=== PATIENT | female | born 2000 | race Caucasian/White ===

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

== ENCOUNTER → 2024-05-16 | Outpatient (CLI) | payer OTHER, SELFPAY ==
[2024-05-16 16:32] LABS: Absolute Lymphocyte Count 2.92 X10^3/uL (0.83-4.51); Absolute Neutrophil Count 5.9 X10^3/uL (2.0-7.7); Basophil# 0.08 X10^3/uL; Basophil% 0.8 % (0-1); Eosinophil# 0.36 X10^3/uL; Eosinophils% 3.5 % (0-5); Hemoglobin 15.1 g/dL (12.0-15.0); Lymphocyte # 2.92 X10^3/ul (0.83-4.51); Lymphocyte % 28.3 % (19-41); Mean Corp Hgb Conc 33.6 g/dL (32-36); Mean Corpuscular Hgb 29.4 pg (27.0-32.0); Mean Corpuscular Volume 87.5 fL (81-99); Mean Platelet Vol. 9.6 fl (6.2-12.0); Monocyte# 1.01 X10^3/uL; Monocyte% 9.8 % (0-10); NRBC Flagged by Analyzer 0 % (0-5); Neutrophil # 5.89 X10^3/uL (2.7-7.7); Neutrophil % 57.2 % (47-70); Platelet Count 387 K/mm3 (150-450); RBC Distribution Width SD 41.5 fl (35.1-43.9); Red Blood Count 5.14 M/mm3 (4.2-5.4); White Blood Count 10.3 K/mm3 (4.4-11.0)
[2024-05-16 16:48] LABS: ALB/GLOB Ratio 1.3 RATIO (0.9-2.4); AST(SGOT) 22 U/L (<=31); Alanine Aminotransfer ALT/SGPT 9 U/L (<=34); Albumin, Serum 4.7 g/dL (3.5-5.0); Alkaline Phosphatase 85 U/L (35-104); Anion Gap 13 (5-15); BUN 5 mg/dL (4-19); BUN/Creat Ratio 8.3 RATIO (10-20); Calcium,Total 10.1 mg/dL (7.6-11.0); Carbon Dioxide 23.8 mmol/L (21.0-32.0); Chloride 100 mmol/L (98-108); Cholesterol 166 mg/dL (<=190); Creatinine, Serum 0.61 mg/dL (0.70-1.20); EST Glomerular Filtration Rate 130 (>60); Globulin 3.6 g/dL (2.2-4.2); Glucose 86 mg/dL (70-99); High Density Lipoprotein 52 mg/dL; Low Density Lipoprotein Calc. 104 mg/dL; Potassium 4.2 mmol/L (3.3-5.1); Protein, Total 8.3 g/dL (5.9-8.4); Sodium Level 137 mmol/L (133-145); Total Bilirubin 0.18 mg/dL (0.00-1.30); Triglycerides 52 mg/dL; Very Low Density Lipoprotein 10 mg/dL (5-40)
== END | disposition home or self-care (01) ==
LOC: BIMLAB 15:16
PROVIDERS: PCP Internal Medicine; Visit Provider Internal Medicine
DX: F41.9 Anxiety disorder, unspecified (principal); F32.A Depression, unspecified; Z13.6 Encounter for screening for cardiovascular disorders
CPT/HCPCS: 36415; 80053; 80061; 85025

== ENCOUNTER → 2024-06-27 | Outpatient (CLI) | payer OTHER, SELFPAY ==
--- NOTE | 2024-06-27 12:41 | ECHOD_ITS ---
Reason For Study Reason For Study: MURMUR Procedure This was a 2D Doppler, Color Flow transthoracic echocardiogram. Exam performed in department. Left Ventricle Normal LV size. Left ventricular systolic function is normal. The left ventricular ejection fraction is 60 %. No regional wall motion abnormalities noted. Right Ventricle Normal RV size. Normal systolic function. Atria Normal left atrium. Normal right atrium. Mitral Valve Normal mitral valve. Tricuspid Valve Normal tricuspid valve. Aortic Valve Trisinus/trileaflet aortic valve. Pulmonic Valve Normal pulmonic valve. Great Vessels Normal aortic root. The pulmonary artery is normal size. Inferior vena cava collapse with respiration. Pericardium/Pleural No pericardial effusion. MMode/2D Measurements & Calculations LVIDd: 4.7 cm IVSd: 0.69 cm Ao root diam: 2.5 cm LVIDs: 3.5 cm LVPWd: 0.75 cm RVDd: 2.7 cm FS: 25.2 % LAV(MOD-bp): 24.8 ml LVAd ap4: 25.9 cm2 SV(MOD-sp4): 38.3 ml LAV(MOD-bp) Indexed: 14.6 ml/m2 LVLd ap4: 8.4 cm SI(MOD-sp4): 22.5 ml/m2 LAV(MOD-sp2): 24.6 ml EDV(MOD-sp4): 67.4 ml LAV(MOD-sp4): 21.8 ml EDV(sp4-el): 67.4 ml LVAs ap4: 15.2 cm2 LVLs ap4: 7.0 cm ESV(MOD-sp4): 29.0 ml ESV(sp4-el): 28.0 ml EF(MOD-sp4): 56.9 % EF(sp4-el): 58.4 % SV(sp4-el): 39.3 ml LA A4 area: 11.6 cm2 LA dimension(2D): 3.0 cm RA A4 area: 9.4 cm2 Time Measurements MV dec time: 0.16 sec Doppler Measurements & Calculations MV E max emeterio: 90.8 cm/sec Lat Peak E' Emeterio: 21.3 cm/sec Med Peak E' Emeterio: 14.2 cm/sec MV A max emeterio: 48.4 cm/sec E/E' lat: 4.3 E/E' med: 6.4 MV E/A: 1.9 MV V2 max: 88.5 cm/sec Ao V2 max: 125.2 cm/sec MV max P.1 mmHg MV dec slope: 582.9 cm/sec2 Ao max P.3 mmHg MV V2 mean: 59.5 cm/sec Ao V2 mean: 88.3 cm/sec MV mean P.6 mmHg Ao mean P.6 mmHg MV V2 VTI: 16.8 cm Ao V2 VTI: 22.9 cm PA V2 max: 100.2 cm/sec PA V2 mean: 73.0 cm/sec ECHO/Echo Complete Interpretation Summary Normal LV size. Left ventricular systolic function is normal. The left ventricular ejection fraction is 60 %. Structurally normal valves. Ordering Physician: Pedro Simon Referring Physician: Pedro Simon Performed By: Liset Reddy RCS
== END | disposition home or self-care (01) ==
LOC: CVS 12:40
PROVIDERS: PCP Internal Medicine; Referring Provider Internal Medicine; Visit Provider Internal Medicine
DX: R01.1 Cardiac murmur, unspecified (principal)
CPT/HCPCS: 93306